=== PATIENT | female | born 1970 | race Caucasian/White ===

== ENCOUNTER 2019-12-03 10:24 | Day surgery (SDC) | payer OTHER ==
[2019-12-02 13:26] VITALS: BMI 25.9
[2019-12-03 12:47] VITALS: TEMP 97.4
[2019-12-03 13:49] VITALS: BP 123/66; PULSE 60
--- NOTE | 2019-12-13 14:55 | PATH ---
Surgical Pathology Report Patient Name: VERONICA BERNAL [facility]. Rec. #: [id number] /Age/Gender: 1970 (Age: 49) / F Account: [id number] Location: [facility] Taken: 12/03/2019 Received: 12/04/2019 Reported: 12/05/2019 Physicians: Davin Ch D.O. Specimen(s) Received A: DUODENUM B: ANGULARIS/BODY C: GASTRIC POLYP Clinical History Epigastric, abdominal pain Postoperative diagnosis: Gastritis Final Diagnosis A. DUODENUM BIOPSY: DUODENAL MUCOSA WITH NO SIGNIFICANT PATHOLOGIC CHANGE. NO HISTOLOGIC EVIDENCE OF INTRAEPITHELIAL LYMPHOCYTOSIS. B. ANGULARIS/BODY BIOPSY: GASTRIC MUCOSA WITH CHRONIC GASTRITIS. IMMUNOSTAIN FOR H. PYLORI IS NEGATIVE. NEGATIVE FOR INTESTINAL METAPLASIA. C. GASTRIC POLYP, BIOPSY: FUNDIC GLAND POLYP. IMMUNOSTAIN FOR H. PYLORI IS NEGATIVE. NEGATIVE FOR INTESTINAL METAPLASIA. Electronically Signed Loly Bishop M.D. Gross Description A. Received in formalin, labeled "biopsy duodenum" are 2 hollis, irregular portions of soft tissue averaging 0.3 cm. in greatest dimension. The specimens are submitted in toto in one cassette. B. Received in formalin, labeled "biopsy body/angularis" are 5 hollis, irregular portions of soft tissue ranging from 0.2-0.3 cm. in greatest dimension. The specimens are submitted in toto in one cassette. C. Received in formalin, labeled "biopsy gastric polyp" are 4 hollis, irregular portions of soft tissue ranging from 0.2-0.4 cm. in greatest dimension. The specimens are submitted in toto in one cassette. 12/04/2019 [facility]/12/04/2019
== END 2019-12-03 13:20 | disposition home or self-care (01) ==
LOC: JASU-ENDO 10:24
PROVIDERS: ATTEND Internal Medicine Gastroenterology
PROC: 0DB68ZX Excision of Stomach, Via Natural or Artificial Opening Endoscopic, Diagnostic (ICD-10-PCS; 2019-12-03)
PROC: 0DB98ZX Excision of Duodenum, Via Natural or Artificial Opening Endoscopic, Diagnostic (ICD-10-PCS; principal; 2019-12-03 11:00)
DX: R10.13 Epigastric pain (principal); K31.7 Polyp of stomach and duodenum; K29.70 Gastritis, unspecified, without bleeding
CPT/HCPCS: 81025

== ENCOUNTER 2024-11-08 04:18 | Day surgery (SDC) | payer OTHER ==
[2024-11-06 12:20] VITALS: BMI 27.4
[2024-11-08 09:51] VITALS: TEMP 98.1
[2024-11-08 10:21] VITALS: BP 124/64; PULSE 63; RESP 15
== END 2024-11-08 10:48 | disposition home or self-care (01) ==
LOC: JASU-ENDO 04:18
PROVIDERS: ATTEND Internal Medicine Gastroenterology
PROC: 0DBL8ZX Excision of Transverse Colon, Via Natural or Artificial Opening Endoscopic, Diagnostic (ICD-10-PCS; 2024-11-08)
PROC: 0DBN8ZX Excision of Sigmoid Colon, Via Natural or Artificial Opening Endoscopic, Diagnostic (ICD-10-PCS; principal; 2024-11-08 09:00)
DX: Z12.11 Encounter for screening for malignant neoplasm of colon (principal); D12.3 Benign neoplasm of transverse colon; K63.89 Other specified diseases of intestine; K64.8 Other hemorrhoids